=== PATIENT | male | born 1965 | race Caucasian/White ===

== ENCOUNTER 2020-03-18 12:54 | Emergency (ER) | payer OTHER ==
[~2020-03-18] VITALS: Ht 172.7 cm; Wt 77.6 kg
[2020-03-18 13:04] VITALS: Ht 172.7 cm; Wt 77.6 kg
[2020-03-18 14:17] LABS: BASOPHIL % 0.4 % (0-2); PLATELET COUNT 244 x10^3mcL (130-400); RED CELL DISTRIBUTION WIDTH 13.5 % (11.5-14.5)
[2020-03-18 14:27] LABS: CALCIUM 8.3 mg/dL (8.5-10.1); CHLORIDE SERUM 99 mmol/L (98-107); CREATININE SERUM 0.9 mg/dL (0.7-1.3); GFR1 > 60 mL/min; GLUCOSE SERUM 101 mg/dL (74-106); POTASSIUM SERUM 3.9 mmol/L (3.5-5.1); SODIUM SERUM 133 mmol/L (136-145)
[2020-03-18 14:31] LABS: ALKALINE PHOSPHATASE 151 U/L (46-116); ALT/SGPT 60 U/L (16-63); AST/SGOT 75 U/L (15-37); BILIRUBIN TOTAL 0.7 mg/dL (0.20-1.00); TOTAL PROTEIN, SERUM 7.2 g/dL (6.4-8.2)
[2020-03-18 14:39] LABS: ALBUMIN 3.2 g/dL (3.4-5.0)
[2020-03-18 14:40] LABS: AMPHETAMINE QUAL UR POSITIVE (See below)
[2020-03-18 16:04] VITALS: BP 113/69
== END 2020-03-18 16:04 | disposition home or self-care (01) ==
LOC: ED 12:54
PROVIDERS: Emergency Medicine
DX: F19.10 Other psychoactive substance abuse, uncomplicated (principal); Z13.9 Encounter for screening, unspecified; Z20.828 Contact with and (suspected) exposure to other viral communicable diseases
CPT/HCPCS: G0480